=== PATIENT | male | born 1975 | race Two or more races ===

== ENCOUNTER 2016-05-08 19:39 | Emergency (ER) | payer SELFPAY ==
[~2016-05-08] VITALS: Ht 170.2 cm; Wt 68.0 kg
[2016-05-08] MEDS ORDERED: MVI, ADULT NO.4 WITH VIT K 10 ML, FOLIC ACID 1 MG, THIAMINE 100 MG in IV NORMAL SALINE ... IV SCH ×4 (20:15)
[2016-05-08 20:19] LABS: BILIRUBIN,URINE NEGATIVE (NEG); GLUCOSE,URINE NEGATIVE (NEG); NITRITE,URINE NEGATIVE (NEG); PH,URINE 5.5; PROTEIN,URINE 30 mg/dL (NEG-TRACE); UROBILINOGEN,URINE 0.2 mg/dL (0.2 mg/dL)
[2016-05-08 20:20] LABS: BASO % 0 % (0-3); EOS % 1 % (0-3); HEMATOCRIT 42.5 % (39.0-53.0); HEMOGLOBIN 14.3 g/dL (13.0-17.5); LYMPH # 1.1 x10^3/uL (1.0-4.8); LYMPH % 23 % (24-48); MEAN CORPUSCULAR HEMOGLOBIN 31 pg (25-35); MEAN CORPUSCULAR HGB CONC 34 g/dL (31-37); MEAN CORPUSCULAR VOLUME 92 fL (79-100); MONO % 8 % (0-9); NEUT % 68 % (31-73); PLATELET COUNT 253 x10^3/uL (140-400); RED BLOOD COUNT 4.62 x10^6/uL (4.30-5.70); RED CELL DISTRIBUTION WIDTH 14.2 % (11.5-14.5); WHITE BLOOD COUNT 4.7 x10^3/uL (4.0-11.0)
[2016-05-08 20:26] LABS: BARBITURATES NEG (NEG); BENZODIAZEPINES POS (NEG); CANNABINOIDS NEG (NEG); COCAINE NEG (NEG); METHADONE NEG (NEG); OPIATES NEG (NEG); PHENCYCLIDINE NEG (NEG)
[2016-05-08 20:28] LABS: BACTERIA,URINE 0 /HPF (0-FEW); ETHANOL, URINE POS (NEG); RBC,URINE RARE /HPF (0-2); SQUAMOUS EPITHELIAL CELL,UR OCC /LPF; WBC,URINE RARE /HPF (0-4)
[2016-05-08 20:29] LABS: INR 1.1 (0.8-1.1); PROTHROMBIN TIME PATIENT 13.6 SEC (11.7-14.0)
[2016-05-08 20:30] LABS: CALCIUM 8.5 mg/dL (8.5-10.1); CREATININE 0.9 mg/dL (0.7-1.3); GFR 93.5; POTASSIUM 3.6 mmol/L (3.5-5.1)
[2016-05-08 20:36] LABS: ALBUMIN 3.8 g/dL (3.4-5.0); DIRECT BILIRUBIN 0.1 mg/dL (0.0-0.2); MAGNESIUM 2.1 mg/dL (1.8-2.4); TOTAL BILIRUBIN 0.3 mg/dL (0.2-1.0); TOTAL PROTEIN 8.1 g/dL (6.4-8.2)
[2016-05-08] MEDS ORDERED: MVI, ADULT NO.4 WITH VIT K 10 ML, FOLIC ACID 1 MG, THIAMINE 100 MG in IV NORMAL SALINE ... IV ONE ×4 (20:45)
--- NOTE | 2016-05-08 20:55 | RAD ---
PROCEDURE CT head without contrast HISTORY Ethanol abuse and acute mental status change TECHNIQUE Noncontrast axial cross sectional CT scanning of the head was performed. FINDINGS There is mild diffuse atrophy. No acute intracranial hemorrhage or midline shift or mass-effect or hydrocephalus or extra-axial fluid collection is seen. No focal hypodense area is seen to indicate an acute infarct or edema radiographically. No skull fracture or pneumocephalus is seen. No opacification of the mastoid sinuses or the paranasal sinuses is seen. The maxillary sinuses are not completely seen in this study. There is moderate mucoperiosteal thickening of the right maxillary sinus and there is a polyp versus mucous retention cyst in the left maxillary sinus. IMPRESSION No acute intracranial abnormality is seen. Electronically signed by: Emir Palumbo MD (May 08, 2016 20:54:28)
--- NOTE | 2016-05-08 21:09 | PHYS DOC ---
Past Medical History Past Medical History: Unknown Past Surgical History: No Surgical History Alcohol Use: Heavy Drug Use: None Adult General Chief Complaint Chief Complaint: ALCOHOL INTOXICATION HPI HPI Patient is a 40 year old male who presents with altered mental status. The patient was found near [address] [place] [address] and [facility] walking and appearing confused. EMS was called and on their arrival the patient was reportedly passed out by building in that area. The patient did not provide any history at scene and was brought to the emergency department for evaluation. The patient smells of alcohol and appears heavily intoxicated at time of interview. Patient at this time states "I don't want to ." Unable to provide any further history at this time. Review of Systems Review of Systems Patient heavily intoxicated and not answering all questions at time of interview Current Medications Current Medications Current Medications Medications (Trade) Dose Ordered Sig/Justin Start Time Stop Time Status Last Admin Dose Admin Multivitamins/ Minerals 10 ml/ Folic Acid 1 mg/ Thiamine HCl 100 mg/Sodium Chloride 1,011.2 ml @ 1,000 mls/ hr Q1H 05/08/16 20:15 05/08/16 20:38 DC Multivitamins/ Minerals/Folic Acid/Thiamine HCl/ Sodium Chloride (Infuvite Adult/ Iv Sodium Chloride 0.9% 1000ml Bag) 1,011.2 ml @ 1,000 mls/ hr 1X ONCE 05/08/16 20:45 05/08/16 21:45 DC 05/08/16 20:20 1,000 MLS/HR Allergies Allergies Allergies Coded Allergies Type Severity Reaction Last Updated Verified No Known Drug Allergies 05/08/16 No Physical Exam Physical Exam Constitutional: Lethargic, afebrile, alcoholic halitosis present [] HENT: Normocephalic, atraumatic, bilateral external ears normal, oropharynx dry , no oral exudates, nose normal. [] Eyes: PERRLA, EOMI, conjunctiva normal, no discharge. [] Neck: Normal range of motion, no tenderness, supple, no stridor. [] Cardiovascular: Tachycardia, regular rhythm, no murmur [] Lungs & Thorax: Bilateral breath sounds clear to auscultation [] Abdomen: Bowel sounds normal, soft, no tenderness, no masses, no pulsatile masses. [] Skin: Warm, dry, no erythema, no rash. [] Back: No tenderness, no CVA tenderness. [] Extremities: No tenderness, no cyanosis, no clubbing, ROM intact, no edema. [] Neurologic: Alert and oriented X 3, normal motor function, normal sensory function, no focal deficits noted. [] Current Patient Data Vital Signs Vital Signs Date Time Temp Pulse Resp B/P Pulse Ox O2 Delivery O2 Flow Rate FiO2 05/08/16 19:40 98.5 105 20 121/78 96 Room Air 98.5 Lab Values Laboratory Tests Test 05/08/16 19:50 05/08/16 19:55 White Blood Count 4.7x10^3/uL (4.0-11.0) Red Blood Count 4.62x10^6/uL (4.30-5.70) Hemoglobin 14.3g/dL (13.0-17.5) Hematocrit 42.5% (39.0-53.0) Mean Corpuscular Volume 92fL (79-100) Mean Corpuscular Hemoglobin 31pg (25-35) Mean Corpuscular Hemoglobin Concent 34g/dL (31-37) Red Cell Distribution Width 14.2% (11.5-14.5) Platelet Count 253x10^3/uL (140-400) Neutrophils (%) (Auto) 68% (31-73) Lymphocytes (%) (Auto) 23% (24-48) L Monocytes (%) (Auto) 8% (0-9) Eosinophils (%) (Auto) 1% (0-3) Basophils (%) (Auto) 0% (0-3) Neutrophils # (Auto) 3.2x10^3uL (1.8-7.7) Lymphocytes # (Auto) 1.1x10^3/uL (1.0-4.8) Monocytes # (Auto) 0.4x10^3/uL (0.0-1.1) Eosinophils # (Auto) 0.0x10^3/uL (0.0-0.7) Basophils # (Auto) 0.0x10^3/uL (0.0-0.2) Prothrombin Time 13.6SEC (11.7-14.0) Prothrombin Time INR 1.1 (0.8-1.1) PTT 28SEC (24-38) Sodium Level 145mmol/L (136-145) Potassium Level 3.6mmol/L (3.5-5.1) Chloride Level 105mmol/L (98-107) Carbon Dioxide Level 26mmol/L (21-32) Anion Gap 14 (6-14) Blood Urea Nitrogen 8mg/dL (8-26) Creatinine 0.9mg/dL (0.7-1.3) Estimated GFR (Cockcroft-Gault) 93.5 Glucose Level 114mg/dL (70-99) H Calcium Level 8.5mg/dL (8.5-10.1) Magnesium Level 2.1mg/dL (1.8-2.4) Total Bilirubin 0.3mg/dL (0.2-1.0) Direct Bilirubin 0.1mg/dL (0.0-0.2) Aspartate Amino Transferase (AST) 91U/L (15-37) H Alanine Aminotransferase (ALT) 69U/L (16-63) H Alkaline Phosphatase 95U/L (46-116) Total Protein 8.1g/dL (6.4-8.2) Albumin 3.8g/dL (3.4-5.0) Ethyl Alcohol Level 374mg/dL (0-10) H Urine Collection Type Void Urine Color Yellow Urine Clarity Clear Urine pH 5.5 Urine Specific [place] 1.015 Urine Protein 30mg/dL (NEG-TRACE) Urine Glucose (UA) Negativemg/dL (NEG) Urine Ketones (Stick) 15mg/dL (NEG) Urine Blood Small (NEG) Urine Nitrite Negative (NEG) Urine Bilirubin Negative (NEG) Urine Urobilinogen Dipstick 0.2mg/dL (0.2 mg/dL) Urine Leukocyte Esterase Negative (NEG) Urine RBC Rare/HPF (0-2) Urine WBC Rare/HPF (0-4) Urine Squamous Epithelial Cells Occ/LPF Urine Bacteria 0/HPF (0-FEW) Urine Hyaline Casts Few/HPF Urine Mucus Marked/LPF Urine Opiates Screen Neg (NEG) Urine Methadone Screen Neg (NEG) Urine Barbiturates Neg (NEG) Urine Phencyclidine Screen Neg (NEG) Urine Amphetamine/Methamphetamine Neg (NEG) Urine Benzodiazepines Screen Pos (NEG) Urine Cocaine Screen Neg (NEG) Urine Cannabinoids Screen Neg (NEG) Urine Ethyl Alcohol Pos (NEG) Laboratory Tests 05/08/16 19:50 Laboratory Tests 05/08/16 19:50 EKG EKG Interpreted by me: Heart rate 102, sinus tachycardia, normal intervals, normal axis, no acute ST/T-wave abnormalities present [] Radiology/Procedures Radiology/Procedures [facility] [address] [place] [address] IMAGING REPORT Signed PATIENT: NITZA JAFFE ACCOUNT: [id number] : 1975 LOCATION: ER AGE: 40 SEX: M EXAM STATUS: REG ER ORD. PHYSICIAN: MADISON WAITE MD REASON: altered mental status PROCEDURE: HEAD WO CONTRAST PROCEDURE CT head without contrast HISTORY Ethanol abuse and acute mental status change TECHNIQUE Noncontrast axial cross sectional CT scanning of the head was performed. FINDINGS There is mild diffuse atrophy. No acute intracranial hemorrhage or midline shift or mass-effect or hydrocephalus or extra-axial fluid collection is seen. No focal hypodense area is seen to indicate an acute infarct or edema radiographically. No skull fracture or pneumocephalus is seen. No opacification of the mastoid sinuses or the paranasal sinuses is seen. The maxillary sinuses are not completely seen in this study. There is moderate mucoperiosteal thickening of the right maxillary sinus and there is a polyp versus mucous retention cyst in the left maxillary sinus. IMPRESSION No acute intracranial abnormality is seen. Electronically signed by: Lluvia Palumbo MD (May 08, 2016 20:54:28) DICTATED and SIGNED BY: LLUVIA PALUMBO III, MD DATE: 05/08/162053 CC: MADISON WAITE MD; NO PCP ~ [] Course & Med Decision Making Course & Med Decision Making Pertinent Labs and Imaging studies reviewed. (See chart for details) Patient was found to have an alcohol level of 374. The patient's mental status improved while in the emergency department. The patient admitted to drinking a large amount of alcohol which he states he does daily. The patient states that he would like to go back to his home but he also stated that he would be interested in information for alcohol detox. The patient was provided with contact information for [facility] and advised to call tomorrow morning. The patient was able to ambulate in the emergency department with a nonfocal during gait. This patient appears appropriate for transport by taxi. Transportation will be secured for patient upon discharge for transport home. Advised return emergency department for any worsening symptoms. Patient was understanding and in agreement with treatment plan. Dragon Disclaimer Dragon Disclaimer This electronic medical record was generated, in whole or in part, using a voice recognition dictation system. Departure Departure Impression: Primary Impression: Alcohol intoxication Additional Impression: Chronic alcoholism Disposition: HOME, SELF-CARE Condition: IMPROVED Referrals: NO PCP (PCP) Patient Instructions: Alcohol Intoxication Additional Instructions: Follow-up tomorrow with [facility] to establish outpatient alcohol treatment. Return to the emergency department for any worsening symptoms. Problem Qualifiers Primary Impression: Alcohol intoxication Complication of substance-induced condition: uncomplicated Qualified Code: F10.120 - Alcohol abuse with intoxication, uncomplicated MADISON WAITE MD May 08, 2016 21:09
[2016-05-08 22:30] VITALS: BP 124/88
--- NOTE | 2016-05-09 10:45 | EKG ---
[facility] [address] [place] [address] Test Date: 2016-05-08 Test Time: 20:16:50 Pat Name: NITZA JAFFE Department: Room: Gender: M Grad Intern: : 1975 Requested By: MADISON WAITE Order Number: [id number] Reading MD: Kavitha Mccoy Measurements Intervals [place] Rate: 102 P: 59 CO: 118 QRS: 46 QRSD: 78 T: 49 QT: 322 QTc: 424 Interpretive Statements SINUS TACHYCARDIA OTHERWISE NORMAL ECG RI6.01 No previous ECG available for comparison Electronically Signed On 05-12-2016 20:22:03 BEVELING MACHINE OPERATOR by Kavitha Mccoy
== END 2016-05-08 22:45 | disposition home or self-care (01) ==
LOC: ER 19:39
DX: F10.229 Alcohol dependence with intoxication, unspecified (principal); Y90.8 Blood alcohol level of 240 mg/100 ml or more
CPT/HCPCS: 36415; 70450; 80048; 80076; 81001; 83735; 85027; 85610; 85730; 93005; 96365; 99285; G0480; G0481; J7030